=== PATIENT | female | born 1960 | race African-American/Black ===

== ENCOUNTER 2017-07-13 17:44 | Emergency (ER) | payer MEDICARE, MEDICAID ==
[2017-07-13 18:37] LABS: #Eosinphils 0.1 thou/uL (0.0-0.7); #Lymphocytes 1.2 thou/uL (1.20-3.40); #Monocytes 0.4 thou/uL (0.11-0.59); #Neutrophils 13.6 thou/uL (1.40-6.50); %Basophils 0.1 % (0.0-1.0); %Eosinophils 0.3 % (0.0-10.0); %Lymphocytes 7.6 % (21.0-51.0); %Monocytes 2.8 % (0.0-10.0); Hematocrit 43.2 % (36.0-47.0); Mean Platelet Volume 7.6 fL (7.4-10.4); Red Blood Cell (RBC) Count 4.94 mill/uL (4.20-5.40); White Blood Cell (WBC) Count 15.3 thou/uL (4.8-10.8)
[2017-07-13 18:45] LABS: Bilirubin Negative (Negative); Blood, Urine Negative (Negative); Glucose, Urine (Dipstick) Negative (Negative); Ketone, Urine 15 mg/dL (Negative); Nitrite Negative (Negative); Protein, Urine (Dipstick) Negative (Neg-Trace)
[2017-07-13 18:46] LABS: Bacteria/HPF 4+ HPF (None Seen); Hyaline Casts/LPF 4-6 HYALINE CAST LPF (0-3 Hyaline)
[2017-07-13 19:00] LABS: ALT (SGPT) 9 U/L (8-55); AST (SGOT) 9 U/L (5-34); Alkaline Phosphatase 92 U/L (40-150); Anion Gap 16 mmol/L (10-20); BUN (Urea Nitrogen) 11 mg/dL (9.8-20.1); Calc. Creatinine Clearance 0 mL/min (70-130); Calcium 9.9 mg/dL (7.8-10.44); Carbon Dioxide 24 mmol/L (22-29); Chloride 106 mmol/L (98-107); Estimated GFR-MDRD Greater than 90; Lipase 13 U/L (8-78)
[2017-07-13 19:45] LABS: Lactic Acid - Sepsis 0.9 mmol/L (0.5-2.2)
[2017-07-13] MEDS ORDERED: Ondansetron HCl/PF 4 MG/2 ML Vial ONE (20:17)
[2017-07-13] MEDS ORDERED: Ketorolac Tromethamine 30 MG/ML VIAL ONE (20:17)
--- NOTE | 2017-07-13 20:31 | CT ---
CT OF THE ABDOMEN AND PELVIS WITHOUT IV CONTRAST 07/13/17 INDICATION: Nausea and vomiting starting this morning. COMPARISON: Prior CT abdomen and pelvis without contrast dated 11/05/12. FINDINGS: There were trace bilateral pleural effusions. There are numerous scattered oval hypodensities within the liver which are largely stable suspicious for cysts. There is a small amount of fluid overlying the right hepatic lobe. There is a hyperdense lesion now present involving the lateral aspect of the right kidney where prev iously it was a hypodense lesion measuring 2.4 cm. The lesion now measures 2.2 cm and is diffusely h yperdense. This may reflect a hemorrhagic conversion or highly proteinaceous cyst. Small 1.2 cm cyst involving the left mid kidney is stable. A smaller suspected cyst is seen involving the inferior po le of the left kidney measuring 1.2 cm. no hydronephrosis is evident. There is prominent wall thickening involving the third stage of the duodenum, fourth stage of the du odenum and proximal jejunum. There is mild free fluid in the pelvis. There is a fibroid uterus present. There is a small calcific ation within the right adnexa. The spleen and visualized unopacified pancreas are unremarkable. There is scattered degenerative and osteoarthritic change. There is diffuse osteopenia and scattered degenerative and osteoarthritic change. There is a stable bony hemangioma within the right lateral aspect of L1. IMPRESSION: 1. Prominent wall thickening involving loops of duodenum and jejunum is suspicious for an enter itis. This may be infectious or inflammatory in etiology. 2. Small bilateral pleural effusions and mild free fluid in the abdomen and pelvis. 3. Hypodensities within the liver are stable since 2012 and likely reflective of cysts. 4. Interval development of a hyperdense lesion involving the right mid kidney in the same locat ion of a previously seen cyst. This may reflect proteinaceous or hemorrhagic conversion. As a conser vative measure, would recommend a followup renal ultrasound for further characterization. Small left renal cysts are likely stable to the prior exam. 5. Fibroid uterus. POS: [facility]
== END 2017-07-13 21:40 | disposition home or self-care (01) ==
LOC: ERS 17:44
DX: K52.9 Noninfective gastroenteritis and colitis, unspecified (principal); N39.0 Urinary tract infection, site not specified; E78.5 Hyperlipidemia, unspecified; D64.9 Anemia, unspecified; I10 Essential (primary) hypertension; E11.9 Type 2 diabetes mellitus without complications
CPT/HCPCS: 36416; 74176; 80053; 81003; 81015; 83605; 83690; 85025; 96361; 96374; 96375; J1885; J2405

== ENCOUNTER 2018-01-31 14:45 | Emergency (ER) | payer MEDICARE, MEDICAID ==
--- NOTE | 2018-01-31 16:26 | RAD ---
CHEST TWO VIEWS: HISTORY: Fever and cough. COMPARISON: 10/05/2016 FINDINGS: The cardiac silhouette and the pulmonary vasculature are unremarkable. The mediastinum is midline. There is no confluent air space consolidation, pneumothorax, or pleural fluid. IMPRESSION: No active cardiopulmonary abnormalities demonstrated. POS: [facility]
== END 2018-01-31 17:07 | disposition home or self-care (01) ==
LOC: ERS 14:45
DX: J20.9 Acute bronchitis, unspecified (principal); E78.5 Hyperlipidemia, unspecified; I10 Essential (primary) hypertension; E11.9 Type 2 diabetes mellitus without complications; D64.9 Anemia, unspecified
CPT/HCPCS: 71046

== ENCOUNTER 2018-08-21 13:07 | Emergency (ER) | payer MEDICARE, MEDICAID ==
[2018-08-21] MEDS ORDERED: Ondansetron PF 4 MG/2 ML Vial ONE (13:28)
[2018-08-21] MEDS ORDERED: Morphine 4 MG/ML VIAL ONE (13:28)
[2018-08-21 13:55] LABS: #Lymphocytes 1.3 thou/uL (1.20-3.40); #Monocytes 0.4 thou/uL (0.11-0.59); #Neutrophils 7.9 thou/uL (1.40-6.50); %Eosinophils 0.4 % (0.0-10.0); %Lymphocytes 13.5 % (21.0-51.0); %Monocytes 4.5 % (0.0-10.0); %Neutrophils 81.7 % (42.0-75.0); Hemoglobin 11.5 g/dL (12.0-16.0); Mean Corpuscular HGB CONC 30.8 g/dL (32.0-36.0); Mean Corpuscular Hemoglobin 26.8 pg (27.0-31.0); Mean Corpuscular Volume 86.9 fL (78.0-98.0); Mean Platelet Volume 7.9 fL (7.4-10.4); Platelet Count 219 thou/uL (130-400); Red Blood Cell (RBC) Count 4.29 mill/uL (4.20-5.40); White Blood Cell (WBC) Count 9.7 thou/uL (4.8-10.8)
[2018-08-21 14:20] LABS: ALT (SGPT) 10 U/L (8-55); AST (SGOT) 11 U/L (5-34); Albumin 3.7 g/dL (3.5-5.0); Alkaline Phosphatase 70 U/L (40-150); Anion Gap 8 mmol/L (10-20); BUN (Urea Nitrogen) 10 mg/dL (9.8-20.1); Calc. Creatinine Clearance 0 mL/min (70-130); Calcium 9.6 mg/dL (7.8-10.44); Carbon Dioxide 30 mmol/L (22-29); Chloride 106 mmol/L (98-107); Estimated GFR-MDRD Greater than 90; Globulin 3.5 g/dL (2.4-3.5); Glucose 252 mg/dL (70-105); Lipase 17 U/L (8-78); Potassium 3.7 mmol/L (3.5-5.1); Protein, Total 7.2 g/dL (6.0-8.3); Sodium 140 mmol/L (136-145)
[2018-08-21] MEDS ORDERED: Mag-Al 1200 mg/1200 mg/30 ML UDCUP ONE (14:50)
[2018-08-21] MEDS ORDERED: Lidocaine Viscous Sol 2% 15 ml UD Cup ONE (14:50)
--- NOTE | 2018-08-22 15:53 | EKG ---
Test Reason : Blood Pressure : / mmHG Vent. Rate : 083 BPM Atrial Rate : 083 BPM P-R Int : 172 ms QRS Dur : 092 ms QT Int : 392 ms P-R-T Axes : 038 -07 017 degrees QTc Int : 460 ms Normal sinus rhythm Normal ECG Confirmed by NANCY ADAM ([id number]), editor magazine GAYLE NORMAN ([id number]) on 08/22/2018 3:53:18 PM Referred By: Confirmed By:NANCY ADAM
== END 2018-08-21 15:34 | disposition home or self-care (01) ==
LOC: ERS 13:07
DX: R10.13 Epigastric pain (principal); R10.11 Right upper quadrant pain; E78.5 Hyperlipidemia, unspecified; I10 Essential (primary) hypertension; D64.9 Anemia, unspecified; E11.9 Type 2 diabetes mellitus without complications; Z79.84 Long term (current) use of oral hypoglycemic drugs; Z79.899 Other long term (current) drug therapy
CPT/HCPCS: 36415; 80053; 83690; 84484; 85025; 93005; 96361; 96374; 96375; J2270; J2405

== ENCOUNTER 2019-05-23 23:30 | Inpatient (IN) | payer MEDICARE, MEDICAID ==
--- NOTE | 2019-05-24 00:03 | RAD ---
RADIOGRAPH CHEST 1 VIEW: DATE: 05/24/2019 11:59 PM HISTORY: 58-year-old female with chest pain FINDINGS: There are no airspace densities, pulmonary edema, pneumothorax, or cardiomegaly. The lateral costophr enic angles are sharp. IMPRESSION: No acute cardiopulmonary findings.
[2019-05-24 00:16] LABS: #Eosinphils 0.1 thou/uL (0.0-0.7); #Lymphocytes 1.7 thou/uL (1.20-3.40); #Monocytes 1.2 thou/uL (0.11-0.59); #Neutrophils 13.1 thou/uL (1.40-6.50); %Basophils 0.1 % (0.0-1.0); %Eosinophils 0.4 % (0.0-10.0); %Lymphocytes 10.6 % (21.0-51.0); %Monocytes 7.6 % (0.0-10.0); %Neutrophils 81.3 % (42.0-75.0); Hemoglobin 11.6 g/dL (12.0-16.0); Mean Corpuscular HGB CONC 32.9 g/dL (32.0-36.0); Mean Corpuscular Hemoglobin 28.1 pg (27.0-31.0); Mean Corpuscular Volume 85.5 fL (78.0-98.0); Mean Platelet Volume 8.1 fL (7.4-10.4); Platelet Count 196 thou/uL (130-400); RBC Distribution Width 13.3 % (11.5-14.5); Red Blood Cell (RBC) Count 4.12 mill/uL (4.20-5.40); White Blood Cell (WBC) Count 16.1 thou/uL (4.8-10.8)
[2019-05-24 00:38] LABS: ALT (SGPT) 9 U/L (8-55); AST (SGOT) 8 U/L (5-34); Albumin 3.9 g/dL (3.5-5.0); Alkaline Phosphatase 87 U/L (40-150); Anion Gap 14 mmol/L (10-20); BUN (Urea Nitrogen) 9 mg/dL (9.8-20.1); Bilirubin, Total 1.1 mg/dL (0.2-1.2); Calc. Creatinine Clearance 0 mL/min (70-130); Calcium 9.3 mg/dL (7.8-10.44); Carbon Dioxide 22 mmol/L (22-29); Chloride 105 mmol/L (98-107); Estimated GFR-MDRD 90; Globulin 3.1 g/dL (2.4-3.5); Glucose 273 mg/dL (70-105); Lipase 16 U/L (8-78); Potassium 3.3 mmol/L (3.5-5.1); Sodium 138 mmol/L (136-145)
[2019-05-24 02:56] LABS: Bacteria/HPF 3+ HPF (None Seen); Bilirubin Negative (Negative); Blood, Urine 1+ (Negative); Clarity Turbid (Clear); Glucose, Urine (Dipstick) Greater than 1000 mg/dL (Negative); Leukocyte 500 Leu/uL (Negative); Nitrite 2+ (Negative); Protein, Urine (Dipstick) 30 mg/dL (Neg-Trace); WBC/HPF Greater than 50 HPF (0-3)
[2019-05-24] MEDS ORDERED: cefTRIAXone\\ROCEPHIN 1 GM VIAL ONE (03:31)
[2019-05-24] MEDS ORDERED: Acetaminophen 500 MG TAB ONE (03:31)
[2019-05-24 04:14] LABS: Troponin I Less than 0.010 ng/mL (< 0.028)
[2019-05-24] MEDS ORDERED: Dextrose 50% Abboject 50 ML SYRINGE SLOW IVP PRN (05:03)
[2019-05-24] MEDS ORDERED: Dextrose 5% in Water 1,000 ML IV PRN (05:03)
--- NOTE | 2019-05-24 05:16 | PDOC.EVN ---
Event Note - Event Note Event Note: H&P dictated [id number]
[2019-05-24] MEDS ORDERED: Aspirin 325 MG TAB ONE (05:18)
--- NOTE | 2019-05-24 05:48 | HP ---
CHIEF COMPLAINT: Chest pain. HISTORY OF PRESENT ILLNESS: Ms. Hanna is a 58-year-old female with past medical history of diabetes, hyperlipidemia, hypertension, presents to the emergency room with chief complaint of midsternal chest pain that started at around noon yesterday. Pain with not radiating. Patient denies any history of chest trauma. Denies nausea or vomiting or abdominal pain. Workup in the emergency room including initial cardiac enzymes and EKG, no acute findings. The patient was found to have acute urinary tract infection. Given patient's presentation and risk factors, the patient is being admitted to hospital for further management and rule out acute coronary syndrome. PAST MEDICAL HISTORY: 1. Hypertension. 2. Diabetes. 3. Hyperlipidemia. PAST SURGICAL HISTORY: 1. section. 2. Hip surgery after a fall. SOCIAL HISTORY: The patient denies smoking or alcohol drinking or drug abuse. FAMILY HISTORY: Includes diabetes. ALLERGIES: NO KNOWN ALLERGIES. HOME MEDICATIONS: Please see home medication reconciliation form for updated medications. REVIEW OF SYSTEMS: Review of 14-systems negative except what was mentioned in history of present illness. PHYSICAL EXAMINATION: GENERAL: The patient awake, alert, pleasant, does not appear to be in acute distress. VITAL SIGNS: Blood pressure 104/55, heart rate is 83, respiratory rate is 18, pulse oximetry is 98% on room air. HEAD AND NECK: Normocephalic and atraumatic. Neck is supple. No JVD. CHEST: Clear, bilateral air entry. HEART: S1 and S2 regular. ABDOMEN: Obese, soft. Bowel sounds present. NEUROLOGIC: Awake, alert, and oriented x3. PSYCHIATRIC: Normal mood. EXTREMITIES: No clubbing. No cyanosis. LABORATORY DATA: Urinalysis shows greater than 50 wbc's, 1+ blood, 3+ bacteria, nitrite 2+, leukocytes positive. Troponin is less than 0.01. Electrolytes; potassium is 3.3, glucose 273. WBC is elevated at 16.1, hemoglobin 11.6. Chest x-ray, no acute findings. ASSESSMENT AND PLAN: 1. Acute chest pain, rule out acute coronary syndrome. 2. Acute urinary tract infection. 3. Leukocytosis. 4. Hypertension. 5. Diabetes mellitus. 6. Hyperlipidemia. PLAN: 1. Admit. 2. Telemetry monitoring. 3. Aspirin. 4. Serial cardiac enzymes. 5. IV antibiotics. 6. Reconcile home medications. 7. Deep venous thrombosis prophylaxis, low molecular weight heparin. EXPECTED LENGTH OF STAY: At least 1 midnight if the patient is stable and further workup negative. Job ID: [id number]
[2019-05-24 06:05] VITALS: BMI 31.1
[2019-05-24 08:07] LABS: Troponin I Less than 0.010 ng/mL (< 0.028)
--- NOTE | 2019-05-24 09:58 | PRG ---
DATE OF SERVICE: 05/24/2019 SUBJECTIVE: The patient says she feels much better. Chest pain has essentially resolved. She reports that she does occasionally have some pain in the left posterior lateral thigh area going down her leg. She says it tends to feel like it may give out sometimes when she is walking. This is not new. She follows with Dr. Mahajan at [facility] and they have discussed this before. She also denies any dysuria or other urinary tract symptoms other than saying it just does not feel normal when she is voiding. Discussion with nurse, did the best we could to get her home medication regimen resolved, talked to her PCP's office and the patient. This appears to be the most accurate we can get. She does not recall having a stress test in 2017 here nor does she believe she has had any cardiac workup since that time. OBJECTIVE: VITAL SIGNS: Temperature is 97.7, pulse 74, respirations are 16, O2 saturation 97% on room air, and BP 122/60. GENERAL APPEARANCE: Age-appropriate female. HEART: Regular rate and rhythm with no murmurs. LUNGS: Clear bilaterally. No wheezes or rales. ABDOMEN: Soft and nontender. EXTREMITIES: No cyanosis or clubbing. No edema. She has palpable posterior tibial pulses bilaterally. IMPRESSION AND PLAN: 1. Chest pain. The patient with multiple risk factors. We will obtain a nuclear medicine stress test today. 2. Urinary tract infection. She is on Rocephin. If she does okay with her stress test, we will likely be able to discharge her on p.o. antibiotics. 3. Diabetes mellitus. Continue with her home medications including Actos and metformin and glipizide. 4. Hypertension. Continue lisinopril. 5. Hyperlipidemia. Continue Lipitor. Job ID: [id number] [facility]
[2019-05-24] MEDS: Aspirin 325 mg Enteric Coated Tablet PO SCH (12:39)
[2019-05-24] MEDS: DULoxetine 30 MG CAP PO SCH (12:39)
[2019-05-24] MEDS: Enoxaparin Sodium 40 MG/0.4 ML SYRINGE SC SCH (12:39)
[2019-05-24] MEDS: HumaLOG 300 UNITS/3 ML VIAL SC PRN ×2 (13:46→17:10)
[2019-05-24 14:27] LABS: #Eosinphils 0.1 thou/uL (0.0-0.7); #Monocytes 1.1 thou/uL (0.11-0.59); #Neutrophils 11.3 thou/uL (1.40-6.50); %Basophils 0.1 % (0.0-1.0); %Eosinophils 0.4 % (0.0-10.0); %Lymphocytes 13.9 % (21.0-51.0); %Monocytes 7.6 % (0.0-10.0); %Neutrophils 77.9 % (42.0-75.0); Hemoglobin 11.8 g/dL (12.0-16.0); Mean Corpuscular HGB CONC 32.2 g/dL (32.0-36.0); Mean Corpuscular Hemoglobin 27.9 pg (27.0-31.0); Mean Corpuscular Volume 86.7 fL (78.0-98.0); Mean Platelet Volume 8.5 fL (7.4-10.4); Platelet Count 201 thou/uL (130-400); RBC Distribution Width 13.1 % (11.5-14.5); Red Blood Cell (RBC) Count 4.21 mill/uL (4.20-5.40); White Blood Cell (WBC) Count 14.5 thou/uL (4.8-10.8)
[2019-05-24] MEDS ORDERED: ADENOSINE 60 MG/20 ML VIAL ONE (16:55)
[2019-05-24] MEDS: metFORMIN 500 MG TAB PO SCH (17:10)
[2019-05-24] MEDS: glipiZIDE 10 MG TAB PO SCH (17:10)
[2019-05-24] MEDS: Atorvastatin Calcium 40 MG TAB PO SCH (20:29)
[2019-05-24] MEDS: Lisinopril 2.5 MG TAB PO SCH (20:29)
[2019-05-25] MEDS ORDERED: cefTRIAXone\\ROCEPHIN 1 GM in Sodium Chloride 0.9% 100 ML IVPB SCH ×2 (03:00→10:00)
[2019-05-25] MEDS: DULoxetine 30 MG CAP PO SCH (10:02)
[2019-05-25] MEDS: Pioglitazone HCl 15 MG TAB PO SCH (10:02)
[2019-05-25] MEDS: glipiZIDE 10 MG TAB PO SCH ×2 (10:02→17:12)
[2019-05-25] MEDS: Aspirin 325 mg Enteric Coated Tablet PO SCH (10:02)
[2019-05-25] MEDS: metFORMIN 500 MG TAB PO SCH ×2 (10:02→17:12)
[2019-05-25] MEDS: Enoxaparin Sodium 40 MG/0.4 ML SYRINGE SC SCH (10:02)
--- NOTE | 2019-05-25 10:26 | NM ---
EXAM: Nuclear medicine cardiac SPECT with EF and wall motion: HISTORY: Chest pain Protocol: Exam was performed using adenosine protocol. The patient is injected with32.5 millicuries of technetium 99m sestamibi intravenously for stress bj ges. The patient is injected with33.0 millicuries of technetium 99 sestamibi intravenously for resting bj ges. Multiple SPECT images are performed in the short axis, vertical long axis, and horizontal long axis. FINDINGS: No scan evidence for infarct or ischemia. TID:1.26 LHR:0.35 EDV:86 mL EF:56% Wall motion:Within normal limits IMPRESSION: Unremarkable cardiac SPECT with EF and wall motion little change from prior study.
--- NOTE | 2019-05-25 11:27 | PDOC.HOSPP ---
- Subjective Encounter Date: 05/25/19 Encounter Time: 11:20 Subjective: f/u for CP with negative CYLINDER DYER but + E. coli bactermia. Received Rocephin x 1 dose this am. Feels ok overall but has CADENA. - Objective Vital Signs & Weight: Vital Signs (12 hours) Temp Pulse Resp BP Pulse Ox 05/25/19 07:42 99.4 F 99 16 118/59 L 99 05/25/19 05:06 96 05/25/19 03:35 99.6 F 97 24 H 118/60 96 Weight Admit Weight 192 lb 9.6 oz Weight 191 lb 12.8 oz I&O: 05/24/19 05/25/19 05/26/19 06:59 06:59 06:59 Intake Total 2050 580 Output Total 1000 Balance 1050 580 Result Diagrams: 05/24/19 13:27 05/24/19 00:07 Additional Labs: Accuchecks 05/25/19 05/24/19 05/24/19 05:29 20:36 16:47 POC Glucose 160 H 143 H 194 H 05/24/19 12:53 POC Glucose 237 H Microbiology 05/24/19 00:17 Venous blood - Right Hand Blood Culture - Preliminary Presumptive Escherichia coli 05/24/19 00:08 Venous blood - Left Hand Blood Culture - Preliminary Specimen has been received and culture in progress. No Growth to date. Laboratory Tests 05/24/19 05/24/19 05/24/19 00:07 00:07 13:27 WBC 16.1 H Hgb 11.6 L Neutrophils % 81.3 H 77.9 H Potassium 3.3 L Radiology Reviewed by me: Yes (CYLINDER DYER - negative) EKG Reviewed by me: Yes (Tele - SR) Hospitalist ROS - Medication Medications: Active Medications Generic Name Dose Route Start Last Admin Trade Name Freq PRN Reason Stop Dose Admin Aspirin 325 mg 05/24/19 09:00 05/25/19 10:02 Ecotrin PO 325 mg DAILY HAFSA Administration Atorvastatin Calcium 80 mg 05/24/19 21:00 05/24/19 20:29 Lipitor PO 80 mg HS HAFSA Administration Duloxetine HCl 30 mg 05/24/19 09:00 05/25/19 10:02 Cymbalta PO 30 mg DAILY HAFSA Administration Enoxaparin Sodium 40 mg 05/24/19 09:00 05/25/19 10:02 Lovenox SC 40 mg 0900 HAFSA Administration Glipizide 10 mg 05/24/19 17:00 05/25/19 10:02 Glucotrol PO 10 mg BID-WM HAFSA Administration Ceftriaxone Sodium 1 gm/ 100 mls @ 200 mls/hr 05/25/19 10:00 05/25/19 10:03 Sodium Chloride IVPB 05/25/19 13:00 100 mls NOW HAFSA Administration Insulin Human Lispro 0 units 05/24/19 05:03 05/24/19 17:10 Humalog SC 2 unit .MILD SLIDING SCALE PRN Administration Mild Correctional Scale Lisinopril 2.5 mg 05/24/19 21:00 05/24/19 20:29 Zestril PO 2.5 mg HS HAFSA Administration Metformin HCl 1,000 mg 05/24/19 17:00 05/25/19 10:02 Glucophage PO 1,000 mg BID-WM HAFSA Administration Pioglitazone HCl 30 mg 05/25/19 09:00 05/25/19 10:02 Actos PO 30 mg DAILY HAFSA Administration - Exam General Appearance: NAD, awake alert Eye: PERRL, anicteric sclera ENT: normocephalic atraumatic, no oropharyngeal lesions Neck: supple, symmetric, no JVD, no thyromegaly, no lymphadenopathy Heart: RRR, no murmur, no gallops, no rubs, normal peripheral pulses Respiratory: CTAB, no wheezes, no rales, no ronchi Gastrointestinal: soft, non-tender, non-distended, normal bowel sounds, no palpable masses Extremities: no cyanosis, no clubbing, no edema Skin: normal turgor, no lesions Neurological: cranial nerve grossly intact, no focal deficits, no new deficit Musculoskeletal: normal tone, normal strength, no muscle wasting Psychiatric: A&O x 3 Hosp A/P (1) E coli bacteremia Code(s): R78.81 - BACTEREMIA Status: Acute Plan: Continue Rocephin 2gm IV daily, await final Ucx with sensitivities (2) E. coli UTI Code(s): N39.0 - URINARY TRACT INFECTION, SITE NOT SPECIFIED; B96.20 - UNSP ESCHERICHIA COLI THE CAUSE OF DISEASES CLASSD ELSWHR Status: Acute Plan: Rocephin 2gm IV daily (3) Atypical chest pain Code(s): R07.89 - OTHER CHEST PAIN Status: Acute Plan: Likely due to #1, CYLINDER DYER negative (4) Diabetes mellitus type 2 in obese Code(s): E11.9 - TYPE 2 DIABETES MELLITUS WITHOUT COMPLICATIONS; E66.9 - OBESITY , UNSPECIFIED Status: Chronic Plan: Continue Actos, Glipizide and Metformin (5) HTN (hypertension) Code(s): I10 - ESSENTIAL (PRIMARY) HYPERTENSION Status: Chronic Qualifiers: Hypertension type: essential hypertension Qualified Code(s): I10 - Essential (primary) hypertension Plan: Stable currently, serial BP monitoring - Plan plan discussed w/ family, continue antibiotics, out of bed/ambulate, DVT proph w /SCDs Stable currently Continue Rocephin 2gm IV daily Await final Ucx results with sensitivities Toradol 30mg IV q6h prn AM lab: BMP, CBC Transfer to medical floor
[2019-05-25] MEDS ORDERED: Ketorolac Tromethamine 30 MG/ML VIAL IVP SCH (11:30)
[2019-05-25] MEDS: HumaLOG 300 UNITS/3 ML VIAL SC PRN (12:55)
[2019-05-25] MEDS ORDERED: Ketorolac Tromethamine 30 MG/ML VIAL IVP PRN (13:30)
--- NOTE | 2019-05-25 14:57 | EKG ---
Test Reason : Blood Pressure : / mmHG Vent. Rate : 116 BPM Atrial Rate : 116 BPM P-R Int : 162 ms QRS Dur : 088 ms QT Int : 268 ms P-R-T Axes : 038 -18 060 degrees QTc Int : 372 ms Sinus tachycardia Possible Left atrial enlargement Left ventricular hypertrophy Nonspecific T wave abnormality Abnormal ECG No ST elevation Confirmed by FELIX SHI M.D. ([id number]), medical transcription editor FLORI VILLATORO ([id number]) on 05/25/2019 2:57:02 PM Referred By: Confirmed By:FELIX SHI M.D.
[2019-05-25] MEDS: Lisinopril 2.5 MG TAB PO SCH (20:40)
[2019-05-25] MEDS: Atorvastatin Calcium 40 MG TAB PO SCH (20:40)
[2019-05-26 06:15] LABS: Band 4 % (5-11); Eosinophils 2 % (0-10); Hemoglobin 10.9 g/dL (12.0-16.0); Lymphocytes 20 % (21-51); MDiff Complete? YES; Mean Corpuscular HGB CONC 32.1 g/dL (32.0-36.0); Mean Corpuscular Hemoglobin 27.2 pg (27.0-31.0); Mean Corpuscular Volume 84.7 fL (78.0-98.0); Monocytes 8 % (0-10); Neutrophil 66 % (42-75); Platelet Count 198 thou/uL (130-400); Platelet Morphology Comment Appears Adequate; RBC Distribution Width 12.8 % (11.5-14.5); Red Blood Cell (RBC) Count 4.01 mill/uL (4.20-5.40); White Blood Cell (WBC) Count 8.8 thou/uL (4.8-10.8)
[2019-05-26 06:30] LABS: Anion Gap 10 mmol/L (10-20); BUN (Urea Nitrogen) 11 mg/dL (9.8-20.1); Calc. Creatinine Clearance 128 mL/min (70-130); Calcium 9.2 mg/dL (7.8-10.44); Carbon Dioxide 24 mmol/L (22-29); Chloride 105 mmol/L (98-107); Estimated GFR-MDRD Greater than 90; Glucose 125 mg/dL (70-105); Potassium 3.4 mmol/L (3.5-5.1); Sodium 136 mmol/L (136-145)
[2019-05-26] MEDS: DULoxetine 30 MG CAP PO SCH (08:36)
[2019-05-26] MEDS: Aspirin 325 mg Enteric Coated Tablet PO SCH (08:36)
[2019-05-26] MEDS: glipiZIDE 10 MG TAB PO SCH ×2 (08:36→17:01)
[2019-05-26] MEDS: Enoxaparin Sodium 40 MG/0.4 ML SYRINGE SC SCH (08:37)
[2019-05-26] MEDS: metFORMIN 500 MG TAB PO SCH ×2 (08:37→17:01)
[2019-05-26] MEDS: cefTRIAXone\\ROCEPHIN 2 GM in Sodium Chloride 0.9% 100 ML IVPB SCH (10:09)
[2019-05-26] MEDS: Pioglitazone HCl 15 MG TAB PO SCH (10:09)
[2019-05-26] MEDS: HumaLOG 300 UNITS/3 ML VIAL SC PRN ×2 (12:25→17:02)
--- NOTE | 2019-05-26 16:06 | PDOC.HOSPP ---
- Subjective Encounter Date: 05/26/19 Encounter Time: 16:00 Subjective: f/u for E. [facility] Feels better overall. - Objective Vital Signs & Weight: Vital Signs (12 hours) Temp Pulse Resp BP Pulse Ox 05/26/19 11:00 98.2 F 85 16 122/79 97 05/26/19 08:00 97 05/26/19 07:55 98.0 F 100 18 125/82 97 05/26/19 05:00 98.3 F 89 18 118/74 97 Weight Admit Weight 192 lb 9.6 oz Weight 191 lb 12.8 oz I&O: 05/25/19 05/26/19 05/27/19 06:59 06:59 06:59 Intake Total 2050 1120 Output Total 1000 Balance 1050 1120 Result Diagrams: 05/26/19 05:39 05/26/19 05:39 Additional Labs: Accuchecks 05/26/19 05/26/19 05/25/19 11:25 04:38 19:25 POC Glucose 154 H 128 H 219 H 05/25/19 16:08 POC Glucose 171 H Microbiology 05/24/19 02:43 Urine clean catch Urine Culture - Final Escherichia coli 05/24/19 00:17 Venous blood - Right Hand Blood Culture - Preliminary Presumptive Escherichia coli 05/24/19 00:17 Venous blood - Right Hand Blood Culture - Preliminary Presumptive Escherichia coli 05/24/19 00:08 Venous blood - Left Hand Blood Culture - Preliminary Specimen has been received and culture in progress. No Growth to date. Laboratory Tests 05/24/19 05/24/19 05/24/19 00:07 00:07 13:27 WBC 16.1 H Hgb 11.6 L Neutrophils % 81.3 H 77.9 H Potassium 3.3 L Radiology Reviewed by me: Yes Hospitalist ROS - Medication Medications: Active Medications Generic Name Dose Route Start Last Admin Trade Name Freq PRN Reason Stop Dose Admin Aspirin 325 mg 05/24/19 09:00 05/26/19 08:36 Ecotrin PO 325 mg DAILY HAFSA Administration Atorvastatin Calcium 80 mg 05/24/19 21:00 05/25/19 20:40 Lipitor PO 80 mg HS HAFSA Administration Duloxetine HCl 30 mg 05/24/19 09:00 05/26/19 08:36 Cymbalta PO 30 mg DAILY HAFSA Administration Enoxaparin Sodium 40 mg 05/24/19 09:00 05/26/19 08:37 Lovenox SC 40 mg 0900 HAFSA Administration Glipizide 10 mg 05/24/19 17:00 05/26/19 08:36 Glucotrol PO 10 mg BID-WM HAFSA Administration Ceftriaxone Sodium 2 gm/ 100 mls @ 200 mls/hr 05/26/19 09:00 05/26/19 10:09 Sodium Chloride IVPB 100 mls Q24HR HAFSA Administration Insulin Human Lispro 0 units 05/24/19 05:03 05/26/19 12:25 Humalog SC 2 unit .MILD SLIDING SCALE PRN Administration Mild Correctional Scale Lisinopril 2.5 mg 05/24/19 21:00 05/25/19 20:40 Zestril PO 2.5 mg HS HAFSA Administration Metformin HCl 1,000 mg 05/24/19 17:00 05/26/19 08:37 Glucophage PO 1,000 mg BID-WM HAFSA Administration Pioglitazone HCl 30 mg 05/25/19 09:00 05/26/19 10:09 Actos PO 30 mg DAILY HAFSA Administration - Exam General Appearance: NAD, awake alert Eye: PERRL, anicteric sclera ENT: normocephalic atraumatic, no oropharyngeal lesions Neck: supple, symmetric, no JVD, no thyromegaly, no lymphadenopathy Heart: RRR, no murmur, no gallops, no rubs, normal peripheral pulses Respiratory: CTAB, no wheezes, no rales, no ronchi Gastrointestinal: soft, non-tender, non-distended, normal bowel sounds, no palpable masses Extremities: no cyanosis, no clubbing, no edema Skin: normal turgor Neurological: cranial nerve grossly intact, no focal deficits, no new deficit Musculoskeletal: normal tone, normal strength Psychiatric: normal affect, A&O x 3 Hosp A/P (1) E coli bacteremia Code(s): R78.81 - BACTEREMIA Status: Acute Plan: Ucx + for E. coli and pansensitive, convert to Levaquin in am (2) E. coli UTI Code(s): N39.0 - URINARY TRACT INFECTION, SITE NOT SPECIFIED; B96.20 - UNSP ESCHERICHIA COLI THE CAUSE OF DISEASES CLASSD ELSWHR Status: Acute Plan: See above in #1 (3) Atypical chest pain Code(s): R07.89 - OTHER CHEST PAIN Status: Acute Plan: TAILMAN negative (4) Diabetes mellitus type 2 in obese Code(s): E11.9 - TYPE 2 DIABETES MELLITUS WITHOUT COMPLICATIONS; E66.9 - OBESITY , UNSPECIFIED Status: Chronic (5) HTN (hypertension) Code(s): I10 - ESSENTIAL (PRIMARY) HYPERTENSION Status: Chronic Qualifiers: Hypertension type: essential hypertension Qualified Code(s): I10 - Essential (primary) hypertension Plan: Stable, resume home BP regimen - Plan plan discussed w/ family, continue antibiotics, out of bed/ambulate, DVT proph w /SCDs Stable currently Continue Rocephin 2gm IV daily Transition to Levaquin in am Toradol 30mg IV q6h prn Likely home in 24h
[2019-05-26] MEDS: Atorvastatin Calcium 40 MG TAB PO SCH (20:25)
[2019-05-26] MEDS: Lisinopril 2.5 MG TAB PO SCH (20:25)
[2019-05-27 07:31] VITALS: BP 119/79; TEMP 97.8
[2019-05-27] MEDS: cefTRIAXone\\ROCEPHIN 2 GM in Sodium Chloride 0.9% 100 ML IVPB SCH (07:42)
[2019-05-27] MEDS: glipiZIDE 10 MG TAB PO SCH (07:46)
[2019-05-27] MEDS: DULoxetine 30 MG CAP PO SCH (07:46)
[2019-05-27] MEDS: Enoxaparin Sodium 40 MG/0.4 ML SYRINGE SC SCH (07:47)
[2019-05-27] MEDS: Aspirin 325 mg Enteric Coated Tablet PO SCH (07:47)
[2019-05-27] MEDS: metFORMIN 500 MG TAB PO SCH (07:47)
[2019-05-27] MEDS: Pioglitazone HCl 15 MG TAB PO SCH (09:34)
--- NOTE | 2019-05-28 00:40 | DIS ---
DATE OF ADMISSION: 05/24/2019 DATE OF DISCHARGE: 05/27/2019 DISCHARGE DIAGNOSES: 1. E coli bacteremia secondary to urinary tract infection. 2. E coli urinary tract infection. 3. Atypical chest pain, noncardiac. 4. Diabetes mellitus type 2, stable. 5. Hypertension, stable. CONSULTATIONS: None. PERTINENT LABORATORY AND X-RAY FINDINGS: Potassium ranged between 3.3 to 3.4. Troponin I negative x3. CBC showed a white blood cell count ranged between 8.8 to 16.1, hemoglobin ranged between 10.9 to 11.8. Blood cultures dated 05/24/2019, showed 1/2 positive for E coli species. Urine culture dated 05/24/2019, showed greater than 100,000 colonies of E coli pansensitive. Portable chest x-ray dated 05/23/2019, showed no acute cardiopulmonary process. Cardiolite stress test dated 05/24/2019, showed no evidence of reversible or fixed ischemia with calculated ejection fraction of 56%. HOSPITAL COURSE: The patient was initially admitted after presenting with chest pain. The patient underwent serial cardiac biomarkers, which were negative x3 proceeding to Cardiolite stress testing showing no evidence of reversible or fixed ischemia with overall calculated ejection fraction of 56%. The patient was noted with a urine culture positive for E coli species as well as 1/2 blood cultures positive for E coli. The patient was treated with Rocephin and vancomycin initially, transitioning to Rocephin to complete the hospital IV antibiotic course. The patient clinically stabilized with antibiotic therapy and general supportive care. The patient has remained afebrile throughout the hospital course with normalization of the white blood cell count by second hospital day. Current recommendations are to transition to Levaquin 500 mg daily to complete a 7-day course of antibiotics after discharge. I have examined the patient at the time of discharge and discussed followup instructions. The patient verbalized understanding and in agreement, ready for discharge on 05/27/2019. DISCHARGE MEDICATIONS: 1. Lipitor 80 mg p.o. at bedtime. 2. Cymbalta 30 mg p.o. daily. 3. Glipizide 10 mg p.o. b.i.d. 4. Lisinopril 2.5 mg p.o. at bedtime. 5. Metformin 1000 mg p.o. daily. 6. Actos 30 mg p.o. daily. 7. Levaquin 500 mg p.o. daily x7 days. FOLLOWUP: The patient may follow up with her primary care provider at [facility] within 7 days of discharge. CONDITION ON DISCHARGE: Stable. ACTIVITY: Ad-campbell. DIET: ADA and heart healthy. SPECIAL INSTRUCTIONS: Repeat urine culture after completion of 7-day course of Levaquin. CODE STATUS: Full. DISPOSITION: Home on 05/27/2019. TIME SPENT: Total time preparing and coordinating discharge, 33 minutes. Job ID: [id number]
--- NOTE | 2019-05-29 04:49 | PQF ---
SRIKANTH WYMAN CHARLES [id number] CLINICAL DOCUMENTATION CLARIFICATION FORM: POST DISCHARGE Addendum to original discharge summary date: ____ Late entry note date: __ DATE: 05-29-2019 ATTN: Vladimir Manzo Please exercise your independent, professional judgment in responding to the clarification form. Clinical indicators are provided on the bottom of this form for your review Based on the below indicators please clarify what the patient actually has Please check appropriate box(es): [ ] Sepsis due to: UTI [ x ] Localized infection without sepsis [ ] Other diagnosis please specify: [ ] Unable to determine In addition, please specify: Present on Admission (POA): [ x ] Yes [ ] No [ ] Unable to determine For continuity of documentation, please document condition throughout progress notes and discharge summary. Thank You. CLINICAL INDICATORS: -HP 05/24 "WBC is evelated at 16.1" -PN 05/24 "positive E.coli bacteremia" -PN 05/24 "E.coli UTI" -Vital Signs 05/24 Pulse:122 -Vital Signs 05/25 Respi:24 RISK FACTORS: -HP 05/24 UTI -HP 05/24 - DM -PN 05/24 - Obesity TREATMENTS: -HP 05/24 - Urinalysis -PN 05/24 - Blood culture -PN 05/24 - Rocephin 2gm IV -NOV 17 - IVF (This form is maintained as a part of the permanent medical record) 2014 [email or web address]. All Rights Reserved Jojo [email or web address] [not provided] [email or web address]
== END 2019-05-27 12:23 | disposition home or self-care (01) | DRG 690 ==
LOC: ERS 23:30 → 2SW 05-24 05:47 → OBSVTOIN 05-24 05:47 → T4-B 05-25 13:23
PROVIDERS: ADMIT Internal Medicine; ATTEND Internal Medicine
DX: N39.0 Urinary tract infection, site not specified (principal); R78.81 Bacteremia; E11.9 Type 2 diabetes mellitus without complications; E78.5 Hyperlipidemia, unspecified; I10 Essential (primary) hypertension; B96.20 Unspecified Escherichia coli [E. coli] as the cause of diseases classified elsewhere; E66.9 Obesity, unspecified; R07.89 Other chest pain; E78.00 Pure hypercholesterolemia, unspecified; D64.9 Anemia, unspecified; Z68.31 Body mass index [BMI] 31.0-31.9, adult; Z79.899 Other long term (current) drug therapy; Z79.84 Long term (current) use of oral hypoglycemic drugs; Z91.81 History of falling
CPT/HCPCS: 36415; 36416; 71045; 78452; 80048; 80053; 81003; 81015; 83690; 84484; 85007; 85025; 85027; 85379; 87040; 87077; 87086; 87149; 87186; 93005; 93017; 94760; 96361; 96365; A9500; J0153; J0696; J1650; J1885; J3490

== ENCOUNTER 2021-01-15 23:43 | Emergency (ER) | payer MEDICARE, OTHER ==
[2021-01-16] MEDS ORDERED: Ondansetron PF 4 MG/2 ML Vial ONE (00:04)
[2021-01-16] MEDS ORDERED: Morphine 4 MG/ML VIAL ONE (00:04)
[2021-01-16 00:32] LABS: #Lymphocytes 1.4 thou/uL (1.20-3.40); #Monocytes 0.5 thou/uL (0.11-0.59); #Neutrophils 5.1 thou/uL (1.40-6.50); %Basophils 0.1 % (0.0-1.0); %Eosinophils 0.1 % (0.0-10.0); %Lymphocytes 19.3 % (21.0-51.0); %Monocytes 7.6 % (0.0-10.0); %Neutrophils 72.9 % (42.0-75.0); Hemoglobin 11.3 g/dL (12.0-16.0); Mean Corpuscular HGB CONC 32.6 g/dL (32.0-36.0); Mean Corpuscular Hemoglobin 28.1 pg (27.0-31.0); Mean Corpuscular Volume 86.2 fL (78.0-98.0); Mean Platelet Volume 8.3 fL (7.4-10.4); Platelet Count 181 thou/uL (130-400); RBC Distribution Width 13.4 % (11.5-14.5); Red Blood Cell (RBC) Count 4.01 mill/uL (4.20-5.40)
[2021-01-16 00:42] LABS: ALT (SGPT) 16 U/L (8-55); AST (SGOT) 28 U/L (5-34); Albumin 3.6 g/dL (3.4-4.8); Alkaline Phosphatase 64 U/L (40-110); Anion Gap 15 mmol/L (10-20); BUN (Urea Nitrogen) 11 mg/dL (9.8-20.1); Bilirubin, Total 0.5 mg/dL (0.2-1.2); Calc. Creatinine Clearance 0 mL/min (70-130); Carbon Dioxide 20 mmol/L (23-31); Chloride 98 mmol/L (98-107); Glucose 322 mg/dL (80-115); Lipase 44 U/L (8-78); Potassium 3.8 mmol/L (3.5-5.1); Protein, Total 7.6 g/dL (5.8-8.1); Sodium 129 mmol/L (136-145)
[2021-01-16 00:45] LABS: Bacteria/HPF 4+ HPF (None Seen); Bilirubin Negative (Negative); Blood, Urine 1+ (Negative); Clarity Extra Turbid (Clear); Glucose, Urine (Dipstick) Greater than 1000 mg/dL (Negative); Ketone, Urine Negative (Negative); Leukocyte 500 Leu/uL (Negative); Nitrite 2+ (Negative); Protein, Urine (Dipstick) 70 mg/dL (Neg-Trace); Squamous Epithelial 0-3 HPF (0-3); Transitional Epithelial 0-3 HPF (None Seen); Urobilinogen Normal mg/dL (Less than 2); WBC/HPF Greater than 50 HPF (0-3); pH, Urine 5.5 (5.0-9.0)
[2021-01-16] MEDS ORDERED: cefTRIAXone\\ROCEPHIN 2 GM VIAL ONE (01:16)
== END 2021-01-16 02:00 | disposition home or self-care (01) ==
LOC: ERS 23:43
DX: N39.0 Urinary tract infection, site not specified (principal); R19.7 Diarrhea, unspecified; E78.5 Hyperlipidemia, unspecified; E78.00 Pure hypercholesterolemia, unspecified; I10 Essential (primary) hypertension; E11.9 Type 2 diabetes mellitus without complications; D64.9 Anemia, unspecified; Z79.84 Long term (current) use of oral hypoglycemic drugs; Z79.899 Other long term (current) drug therapy
CPT/HCPCS: 80053; 81003; 81015; 83690; 85025; 87077; 87086; 87186; 93005; 96365; 96375; J0696; J2270; J2405

== ENCOUNTER 2025-05-02 11:25 | Inpatient (IN) | payer OTHER ==
[2025-05-02] MEDS ORDERED: Ketorolac Tromethamine 30 MG (1 mL) VIAL ONE (11:53)
[2025-05-02 13:07] LABS: #Basophils 0.04 10x3/uL (0.0-0.2); #Eosinophils 0.03 10x3/uL (0.0-0.7); #Monocytes 1.09 10x3/uL (0.11-0.59); #Neutrophils 13.92 10x3/uL (1.40-6.50); %Basophils 0.2 % (0.0-1.0); %Eosinophils 0.2 % (0.0-10.0); %Lymphocytes 15.5 % (21.0-51.0); %Monocytes 6.0 % (0.0-10.0); %Neutrophils 77.3 % (42.0-75.0); Hematocrit 33.5 % (36.0-47.0); Hemoglobin 10.3 g/dL (12.0-16.0); Mean Corpuscular Hemoglobin 27.2 pg (27.0-31.0); Mean Corpuscular Volume 88.6 fL (78.0-98.0); Platelet Count 313 10x3/uL (130-400); Red Blood Cell (RBC) Count 3.78 mill/uL (4.20-5.40); White Blood Cell (WBC) Count 18.03 10x3/uL (4.8-10.8)
[2025-05-02 13:42] LABS: ALT (SGPT) 11 U/L (Less than 34); AST (SGOT) 23 U/L (11-34); Albumin 2.9 g/dL (3.1-4.5); Alkaline Phosphatase 56 U/L (40-110); Anion Gap 13 mmol/L (10-20); BUN (Urea Nitrogen) 12 mg/dL (9.8-20.1); Bilirubin, Total 0.5 mg/dL (0.3-1.2); Calc. Creatinine Clearance 0 mL/min (70-130); Calcium 9.2 mg/dL (7.8-10.44); Carbon Dioxide 22 mmol/L (23-31); Chloride 110 mmol/L (98-107); Globulin 3.4 g/dL (2.4-3.5); Glucose 49 mg/dL (80-115); Potassium 4.8 mmol/L (3.5-5.1); Sodium 140 mmol/L (136-145)
[2025-05-02] MEDS ORDERED: Dextrose 50% Abboject 50 ML SYRINGE SLOW IVP PRN (13:46)
[2025-05-02] MEDS ORDERED: Acetaminophen 325 MG TAB PO PRN (13:46)
[2025-05-02] MEDS ORDERED: Glucagon 1 MG/ML KIT IM PRN (13:46)
[2025-05-02] MEDS ORDERED: hydrALAZINE 20 MG/ML VIAL SLOW IVP PRN (13:46)
[2025-05-02] MEDS ORDERED: Ondansetron PF 4 MG/2 ML Vial IVP PRN (13:46)
[2025-05-02 13:55] LABS: Cocaine Metabolite Screen Negative (Negative); THC/Cannabinoid Screen Negative (Negative); Tricyclic Screen Negative (Negative)
[2025-05-02 13:58] LABS: Bacteria/HPF 4+ HPF (None Seen); CAUTI Indications for Culture Dysuria,urgency,freq; Glucose, Urine (Dipstick) Normal (Negative); Leukocyte 500 Leu/uL (Negative); Protein, Urine (Dipstick) 50 mg/dL (Neg-Trace); RBC/HPF 21-50 HPF (0-3); Specific Gravity, Urine 1.016 (1.002-1.036); Urine Culture Reflex Yes Yes; WBC/HPF Greater than 50 HPF (0-3)
[2025-05-02] MEDS ORDERED: cefTRIAXone (ROCEPHIN) 1 GM VIAL ONE (14:04)
[2025-05-02 16:06] VITALS: BMI 25.0
[2025-05-02] MEDS: HYDROcodone/Acetaminophen 5/325 mg Tablet PO PRN (16:16)
[2025-05-02] MEDS: Methocarbamol 500 MG TAB PO PRN (16:16)
[2025-05-03 05:06] LABS: #Basophils Less than 0.03 10x3/uL (0.0-0.2); #Eosinophils 0.08 10x3/uL (0.0-0.7); #Monocytes 0.63 10x3/uL (0.11-0.59); #Neutrophils 5.40 10x3/uL (1.40-6.50); %Basophils 0.3 % (0.0-1.0); %Eosinophils 1.0 % (0.0-10.0); %Lymphocytes 19.9 % (21.0-51.0); %Monocytes 8.2 % (0.0-10.0); %Neutrophils 69.8 % (42.0-75.0); Hematocrit 30.1 % (36.0-47.0); Hemoglobin 9.3 g/dL (12.0-16.0); Mean Corpuscular Hemoglobin 27.6 pg (27.0-31.0); Mean Corpuscular Volume 89.3 fL (78.0-98.0); Platelet Count 266 10x3/uL (130-400); Red Blood Cell (RBC) Count 3.37 mill/uL (4.20-5.40); White Blood Cell (WBC) Count 7.73 10x3/uL (4.8-10.8)
[2025-05-03 05:27] LABS: Anion Gap 9 mmol/L (10-20); BUN (Urea Nitrogen) 13 mg/dL (9.8-20.1); Calc. Creatinine Clearance 70 mL/min (70-130); Calcium 8.8 mg/dL (7.8-10.44); Carbon Dioxide 23 mmol/L (23-31); Chloride 109 mmol/L (98-107); Glucose 265 mg/dL (80-115); Potassium 4.6 mmol/L (3.5-5.1); Sodium 136 mmol/L (136-145)
[2025-05-03] MEDS ORDERED: CEFAZOLIN 2 GM VIAL ONE (07:45)
[2025-05-03] MEDS ORDERED: Famotidine/PF 20 mg/2ml Vial ONE (08:03)
[2025-05-03] MEDS ORDERED: PROPOFOL 20 ML ONE (08:05)
[2025-05-03] MEDS ORDERED: PHENYLEPHRINE-NS 100 MCG/ML 10 ML SYRINGE ONE ×2 (08:16→09:20)
[2025-05-03] MEDS ORDERED: Ondansetron PF 4 MG/2 ML Vial ONE (08:29)
[2025-05-03] MEDS ORDERED: Ketorolac Tromethamine 30 MG (1 mL) VIAL ONE (08:34)
[2025-05-03] MEDS: glipiZIDE 10 MG TAB PO SCH (12:55)
[2025-05-03] MEDS: Insulin Glargine 30 UNITS/0.3 ML VIAL SC SCH (12:56)
[2025-05-03] MEDS: DULoxetine 30 MG CAP PO SCH (12:56)
[2025-05-03] MEDS: Lisinopril 2.5 MG TAB PO SCH (12:56)
[2025-05-03] MEDS: cefTRIAXone\\ROCEPHIN 1 GM in Sodium Chloride 0.9% 100 ML IVPB SCH (14:39)
[2025-05-04 05:05] LABS: #Basophils Less than 0.03 10x3/uL (0.0-0.2); #Eosinophils 0.07 10x3/uL (0.0-0.7); #Monocytes 0.62 10x3/uL (0.11-0.59); #Neutrophils 5.35 10x3/uL (1.40-6.50); %Basophils 0.1 % (0.0-1.0); %Eosinophils 0.9 % (0.0-10.0); %Lymphocytes 21.5 % (21.0-51.0); %Monocytes 7.9 % (0.0-10.0); %Neutrophils 68.4 % (42.0-75.0); Hematocrit 23.8 % (36.0-47.0); Hemoglobin 7.6 g/dL (12.0-16.0); Mean Corpuscular Hemoglobin 27.9 pg (27.0-31.0); Mean Corpuscular Volume 87.5 fL (78.0-98.0); Platelet Count 209 10x3/uL (130-400); Red Blood Cell (RBC) Count 2.72 mill/uL (4.20-5.40); White Blood Cell (WBC) Count 7.82 10x3/uL (4.8-10.8)
[2025-05-04 05:21] LABS: Anion Gap 11 mmol/L (10-20); BUN (Urea Nitrogen) 21 mg/dL (9.8-20.1); Calc. Creatinine Clearance 86 mL/min (70-130); Calcium 8.3 mg/dL (7.8-10.44); Carbon Dioxide 21 mmol/L (23-31); Chloride 106 mmol/L (98-107); Glucose 173 mg/dL (80-115); Potassium 4.6 mmol/L (3.5-5.1); Sodium 133 mmol/L (136-145)
[2025-05-04] MEDS ORDERED: Aspirin Chewable 81 MG TAB PO SCH (09:00)
[2025-05-04] MEDS: Aspirin Chewable 81 MG TAB PO SCH (09:44)
[2025-05-05 08:20] LABS: #Basophils Less than 0.03 10x3/uL (0.0-0.2); #Eosinophils 0.09 10x3/uL (0.0-0.7); #Monocytes 0.58 10x3/uL (0.11-0.59); #Neutrophils 6.04 10x3/uL (1.40-6.50); %Basophils 0.2 % (0.0-1.0); %Eosinophils 1.1 % (0.0-10.0); %Lymphocytes 19.3 % (21.0-51.0); %Monocytes 6.9 % (0.0-10.0); %Neutrophils 71.8 % (42.0-75.0); Hematocrit 24.4 % (36.0-47.0); Hemoglobin 7.4 g/dL (12.0-16.0); Mean Corpuscular Hemoglobin 26.9 pg (27.0-31.0); Mean Corpuscular Volume 88.7 fL (78.0-98.0); Platelet Count 209 10x3/uL (130-400); Red Blood Cell (RBC) Count 2.75 mill/uL (4.20-5.40); White Blood Cell (WBC) Count 8.41 10x3/uL (4.8-10.8)
[2025-05-05 08:42] LABS: Anion Gap 10 mmol/L (10-20); BUN (Urea Nitrogen) 13 mg/dL (9.8-20.1); Calc. Creatinine Clearance 103 mL/min (70-130); Calcium 8.9 mg/dL (7.8-10.44); Carbon Dioxide 25 mmol/L (23-31); Chloride 105 mmol/L (98-107); Glucose 130 mg/dL (80-115); Potassium 4.4 mmol/L (3.5-5.1); Sodium 136 mmol/L (136-145)
[2025-05-07] MEDS: Senokot S 8.6-50 MG TAB PO SCH (08:14)
[2025-05-07] MEDS: Bisacodyl 10 MG SUPP PR SCH (11:21)
[2025-05-07 12:51] LABS: ALT (SGPT) 11 U/L (Less than 34); AST (SGOT) 23 U/L (11-34); Albumin 2.8 g/dL (3.1-4.5); Alkaline Phosphatase 78 U/L (40-110); Anion Gap 14 mmol/L (10-20); BUN (Urea Nitrogen) 14 mg/dL (9.8-20.1); Bilirubin, Total 0.7 mg/dL (0.3-1.2); Calc. Creatinine Clearance 85 mL/min (70-130); Calcium 10.0 mg/dL (7.8-10.44); Carbon Dioxide 25 mmol/L (23-31); Chloride 99 mmol/L (98-107); Globulin 4.3 g/dL (2.4-3.5); Glucose 238 mg/dL (80-115); Potassium 4.6 mmol/L (3.5-5.1); Sodium 133 mmol/L (136-145)
[2025-05-07 20:47] VITALS: BP 125/77; TEMP 97.8
== END 2025-05-07 20:33 | DRG 481 ==
LOC: ERS 11:25 → SURG A 13:46
PROVIDERS: ADMIT Surgery Trauma Surgery; ATTEND Surgery Trauma Surgery
PROC: 3E03329 Introduction of Other Anti-infective into Peripheral Vein, Percutaneous Approach (ICD-10-PCS; 2025-05-02)
PROC: 0QS706Z Reposition Left Upper Femur with Intramedullary Internal Fixation Device, Open Approach (ICD-10-PCS; principal; 2025-05-03)
DX: S72.142A Displaced intertrochanteric fracture of left femur, initial encounter for closed fracture (principal); D62 Acute posthemorrhagic anemia; N39.0 Urinary tract infection, site not specified; I10 Essential (primary) hypertension; D64.9 Anemia, unspecified; E11.9 Type 2 diabetes mellitus without complications; Z98.890 Other specified postprocedural states; W19.XXXA Unspecified fall, initial encounter; E78.00 Pure hypercholesterolemia, unspecified; Z79.899 Other long term (current) drug therapy
CPT/HCPCS: 36415; 36416; 51701; 71045; 72170; 80048; 80053; 80306; 81001; 84484; 85025; 87086; 93005; 96365; 96367; 96375; C1713; G0390; J0696; J1308; J1815; J1885; J2270; J2405; J2704; J3010

== ENCOUNTER 2025-05-19 23:58 | Inpatient (IN) | payer OTHER ==
[2025-05-20 01:03] LABS: #Basophils 0.03 10x3/uL (0.0-0.2); #Eosinophils 0.20 10x3/uL (0.0-0.7); #Monocytes 2.20 10x3/uL (0.11-0.59); #Neutrophils 17.38 10x3/uL (1.40-6.50); %Basophils 0.1 % (0.0-1.0); %Eosinophils 0.9 % (0.0-10.0); %Lymphocytes 8.3 % (21.0-51.0); %Monocytes 9.8 % (0.0-10.0); %Neutrophils 77.6 % (42.0-75.0); Hematocrit 18.8 % (36.0-47.0); Hemoglobin 6.2 g/dL (12.0-16.0); Mean Corpuscular Hemoglobin 27.1 pg (27.0-31.0); Mean Corpuscular Volume 82.1 fL (78.0-98.0); Platelet Count 302 10x3/uL (130-400); Red Blood Cell (RBC) Count 2.29 mill/uL (4.20-5.40); White Blood Cell (WBC) Count 22.42 10x3/uL (4.8-10.8)
[2025-05-20] MEDS ORDERED: Pantoprazole 40 MG VIAL ONE (01:13)
[2025-05-20 01:41] LABS: ALT (SGPT) 12 U/L (Less than 34); AST (SGOT) 18 U/L (11-34); Albumin 1.8 g/dL (3.1-4.5); Alkaline Phosphatase 128 U/L (40-110); Anion Gap 13 mmol/L (10-20); BUN (Urea Nitrogen) 56 mg/dL (9.8-20.1); Bilirubin, Total 0.4 mg/dL (0.3-1.2); Calc. Creatinine Clearance 0 mL/min (70-130); Calcium 8.5 mg/dL (7.8-10.44); Carbon Dioxide 19 mmol/L (23-31); Chloride 99 mmol/L (98-107); Globulin 4.6 g/dL (2.4-3.5); Glucose 230 mg/dL (80-115); Potassium 5.1 mmol/L (3.5-5.1); Sodium 126 mmol/L (136-145)
[2025-05-20] MEDS ORDERED: Ondansetron PF 4 MG/2 ML Vial IVP PRN (03:43)
[2025-05-20] MEDS ORDERED: HYDROcodone/Acetaminophen 5/325 mg Tablet PO PRN (04:28)
[2025-05-20] MEDS ORDERED: Glucagon 1 MG/ML KIT IM PRN (04:28)
[2025-05-20] MEDS ORDERED: Dextrose 50% Abboject 50 ML SYRINGE SLOW IVP PRN (04:28)
[2025-05-20 05:37] LABS: Iron 59 ug/dL (50-170); Iron Binding Capacity, Total 190 mcg/dL (265-497)
[2025-05-20 05:52] VITALS: BMI 26.7
[2025-05-20 06:58] LABS: CAUTI Indications for Culture Fever or rigors; Glucose, Urine (Dipstick) 70 mg/dL (Negative); Leukocyte 500 Leu/uL (Negative); Protein, Urine (Dipstick) 10 mg/dL (Neg-Trace); Specific Gravity, Urine 1.008 (1.002-1.036); WBC/HPF Greater than 50 HPF (0-3)
[2025-05-20 07:14] LABS: Bacteria/HPF 1+ HPF (None Seen)
[2025-05-20 07:15] LABS: Urine Culture Reflex Yes Yes
[2025-05-20] MEDS: cefTRIAXone\\ROCEPHIN 2 GM in Sodium Chloride 0.9% 100 ML IVPB SCH (09:23)
[2025-05-20 11:02] LABS: Hematocrit 22.5 % (36.0-47.0); Hemoglobin 7.4 g/dL (12.0-16.0)
[2025-05-20 11:19] LABS: Anion Gap 12 mmol/L (10-20); BUN (Urea Nitrogen) 53 mg/dL (9.8-20.1); Calc. Creatinine Clearance 15 mL/min (70-130); Calcium 8.3 mg/dL (7.8-10.44); Carbon Dioxide 18 mmol/L (23-31); Chloride 104 mmol/L (98-107); Glucose 282 mg/dL (80-115); Potassium 4.5 mmol/L (3.5-5.1); Sodium 129 mmol/L (136-145)
[2025-05-20] MEDS: Albumin 25% 25 GM (100 mL) BOT IVPB SCH (13:50)
[2025-05-20] MEDS: Acetaminophen 325 MG TAB PO SCH (13:50)
[2025-05-20] MEDS: Acetaminophen 325 MG TAB PO PRN (17:40)
[2025-05-20 20:53] LABS: Anion Gap 17 mmol/L (10-20); BUN (Urea Nitrogen) 44 mg/dL (9.8-20.1); Calc. Creatinine Clearance 18 mL/min (70-130); Calcium 8.8 mg/dL (7.8-10.44); Carbon Dioxide 16 mmol/L (23-31); Chloride 105 mmol/L (98-107); Glucose 267 mg/dL (80-115); Potassium 4.1 mmol/L (3.5-5.1); Sodium 134 mmol/L (136-145)
[2025-05-20 20:55] LABS: Iron 43 ug/dL (50-170); Iron Binding Capacity, Total 159 mcg/dL (265-497)
[2025-05-20] MEDS: Pantoprazole 40 MG DR.TAB PO SCH (21:21)
[2025-05-20] MEDS: Senokot S 8.6-50 MG TAB PO SCH (23:35)
[2025-05-20] MEDS: Bisacodyl 10 MG SUPP PR SCH (23:35)
[2025-05-21 00:40] LABS: Anion Gap 12 mmol/L (10-20); BUN (Urea Nitrogen) 48 mg/dL (9.8-20.1); Calc. Creatinine Clearance 21 mL/min (70-130); Calcium 8.8 mg/dL (7.8-10.44); Carbon Dioxide 21 mmol/L (23-31); Chloride 106 mmol/L (98-107); Glucose 180 mg/dL (80-115); Potassium 4.4 mmol/L (3.5-5.1); Sodium 135 mmol/L (136-145)
[2025-05-21 04:03] LABS: #Basophils 0.04 10x3/uL (0.0-0.2); #Eosinophils 0.19 10x3/uL (0.0-0.7); #Monocytes 1.51 10x3/uL (0.11-0.59); #Neutrophils 10.57 10x3/uL (1.40-6.50); %Basophils 0.3 % (0.0-1.0); %Eosinophils 1.3 % (0.0-10.0); %Lymphocytes 12.1 % (21.0-51.0); %Monocytes 10.5 % (0.0-10.0); %Neutrophils 73.7 % (42.0-75.0); Hematocrit 21.7 % (36.0-47.0); Hemoglobin 7.2 g/dL (12.0-16.0); Mean Corpuscular Hemoglobin 27.0 pg (27.0-31.0); Mean Corpuscular Volume 81.3 fL (78.0-98.0); Platelet Count 309 10x3/uL (130-400); Red Blood Cell (RBC) Count 2.67 mill/uL (4.20-5.40); White Blood Cell (WBC) Count 14.35 10x3/uL (4.8-10.8)
[2025-05-21 04:14] LABS: Albumin 2.7 g/dL (3.1-4.5); Anion Gap 16 mmol/L (10-20); BUN (Urea Nitrogen) 41 mg/dL (9.8-20.1); BUN/Creatinine Ratio 17.83; Calc. Creatinine Clearance 29 mL/min (70-130); Calcium 8.9 mg/dL (7.8-10.44); Carbon Dioxide 23 mmol/L (23-31); Chloride 109 mmol/L (98-107); Glucose 183 mg/dL (80-115); Potassium 3.8 mmol/L (3.5-5.1); Sodium 144 mmol/L (136-145)
[2025-05-21] MEDS: Albumin 25% 25 GM (100 mL) BOT IVPB SCH (13:43)
[2025-05-21] MEDS: Insulin Glargine 30 UNITS/0.3 ML VIAL SC SCH (13:43)
[2025-05-21] MEDS: EPOETIN ALFA-EPBX (ESRD) 10,000 UNITS/ML VIAL SC SCH (15:13)
[2025-05-21] MEDS: Ferrous Sulfate 325 MG TAB PO SCH (17:17)
[2025-05-21 17:23] LABS: Hematocrit 21.5 % (36.0-47.0); Hemoglobin 7.0 g/dL (12.0-16.0); Platelet Count 286 10x3/uL (130-400)
[2025-05-22 04:27] LABS: #Basophils Less than 0.03 10x3/uL (0.0-0.2); #Eosinophils 0.10 10x3/uL (0.0-0.7); #Monocytes 1.10 10x3/uL (0.11-0.59); #Neutrophils 7.43 10x3/uL (1.40-6.50); %Basophils 0.2 % (0.0-1.0); %Eosinophils 0.9 % (0.0-10.0); %Lymphocytes 22.3 % (21.0-51.0); %Monocytes 9.6 % (0.0-10.0); %Neutrophils 65.2 % (42.0-75.0); Hematocrit 20.1 % (36.0-47.0); Hemoglobin 6.7 g/dL (12.0-16.0); Mean Corpuscular Hemoglobin 27.2 pg (27.0-31.0); Mean Corpuscular Volume 81.7 fL (78.0-98.0); Platelet Count 306 10x3/uL (130-400); Red Blood Cell (RBC) Count 2.46 mill/uL (4.20-5.40); White Blood Cell (WBC) Count 11.41 10x3/uL (4.8-10.8)
[2025-05-22 04:58] LABS: Anion Gap 9 mmol/L (10-20); BUN (Urea Nitrogen) 12 mg/dL (9.8-20.1); Calc. Creatinine Clearance 106 mL/min (70-130); Calcium 8.7 mg/dL (7.8-10.44); Carbon Dioxide 31 mmol/L (23-31); Chloride 107 mmol/L (98-107); Glucose 151 mg/dL (80-115); Magnesium 1.6 mg/dL (1.6-2.6); Potassium 3.0 mmol/L (3.5-5.1); Sodium 144 mmol/L (136-145)
[2025-05-22] MEDS: Magnesium Sulfate In Water 4 GM in Premix 1 BAG IVPB SCH ×2 (06:51→08:50)
[2025-05-22] MEDS: Insulin Glargine 30 UNITS/0.3 ML VIAL SC SCH (08:48)
[2025-05-22] MEDS: Sodium Ferric Gluconate 250 MG in Sodium Chloride 0.9% 250 ML 250 ML IVPB SCH (11:26)
[2025-05-23 04:05] LABS: #Basophils 0.06 10x3/uL (0.0-0.2); #Eosinophils 0.15 10x3/uL (0.0-0.7); #Monocytes 1.17 10x3/uL (0.11-0.59); #Neutrophils 8.96 10x3/uL (1.40-6.50); %Basophils 0.4 % (0.0-1.0); %Eosinophils 1.1 % (0.0-10.0); %Lymphocytes 20.8 % (21.0-51.0); %Monocytes 8.6 % (0.0-10.0); %Neutrophils 66.0 % (42.0-75.0); Hematocrit 26.5 % (36.0-47.0); Hemoglobin 8.8 g/dL (12.0-16.0); Mean Corpuscular Hemoglobin 27.4 pg (27.0-31.0); Mean Corpuscular Volume 82.6 fL (78.0-98.0); Platelet Count 337 10x3/uL (130-400); Red Blood Cell (RBC) Count 3.21 mill/uL (4.20-5.40); White Blood Cell (WBC) Count 13.59 10x3/uL (4.8-10.8)
[2025-05-23 04:21] LABS: Anion Gap 10 mmol/L (10-20); BUN (Urea Nitrogen) 6 mg/dL (9.8-20.1); Calc. Creatinine Clearance 109 mL/min (70-130); Calcium 8.8 mg/dL (7.8-10.44); Carbon Dioxide 23 mmol/L (23-31); Chloride 110 mmol/L (98-107); Glucose 208 mg/dL (80-115); Magnesium 1.9 mg/dL (1.6-2.6); Potassium 4.2 mmol/L (3.5-5.1); Sodium 139 mmol/L (136-145)
[2025-05-23] MEDS: Electrolyte Replacement Protocol 1 EACH FS ONE (09:42)
[2025-05-23] MEDS: PHOS-NAK 1 PKT PACK PO SCH (09:42)
[2025-05-23 15:43] VITALS: BP 126/76; TEMP 97.8
== END 2025-05-23 16:00 | DRG 871 ==
LOC: ERS 23:58 → 2SE 05-20 03:43 → UNDOADMIN 05-20 03:43
PROVIDERS: ADMIT Internal Medicine; ATTEND Family Medicine
PROC: 30233N1 Transfusion of Nonautologous Red Blood Cells into Peripheral Vein, Percutaneous Approach (ICD-10-PCS; principal; 2025-05-20)
PROC: 3E03329 Introduction of Other Anti-infective into Peripheral Vein, Percutaneous Approach (ICD-10-PCS; 2025-05-20)
PROC: 0T9B70Z Drainage of Bladder with Drainage Device, Via Natural or Artificial Opening (ICD-10-PCS; 2025-05-20)
PROC: 30233J1 Transfusion of Nonautologous Serum Albumin into Peripheral Vein, Percutaneous Approach (ICD-10-PCS; 2025-05-21)
DX: A41.50 Gram-negative sepsis, unspecified (principal); G93.41 Metabolic encephalopathy; J15.69 Pneumonia due to other Gram-negative bacteria; N17.9 Acute kidney failure, unspecified; E87.1 Hypo-osmolality and hyponatremia; E87.21 Acute metabolic acidosis; D62 Acute posthemorrhagic anemia; N13.6 Pyonephrosis; E46 Unspecified protein-calorie malnutrition; E87.5 Hyperkalemia; E78.00 Pure hypercholesterolemia, unspecified; E88.09 Other disorders of plasma-protein metabolism, not elsewhere classified; I10 Essential (primary) hypertension; E11.65 Type 2 diabetes mellitus with hyperglycemia; R19.7 Diarrhea, unspecified; Z98.890 Other specified postprocedural states; Z79.899 Other long term (current) drug therapy; Z79.84 Long term (current) use of oral hypoglycemic drugs; Z79.2 Long term (current) use of antibiotics; Z79.891 Long term (current) use of opiate analgesic; Z87.81 Personal history of (healed) traumatic fracture; Z98.891 History of uterine scar from previous surgery; Z79.82 Long term (current) use of aspirin; N32.0 Bladder-neck obstruction; D50.9 Iron deficiency anemia, unspecified; E86.9 Volume depletion, unspecified; E83.42 Hypomagnesemia; E83.39 Other disorders of phosphorus metabolism; Z68.26 Body mass index [BMI] 26.0-26.9, adult
CPT/HCPCS: 36415; 36416; 36430; 71045; 72192; 76770; 80048; 80053; 81001; 82043; 82274; 82550; 82728; 83010; 83540; 83550; 83615; 83690; 83735; 84100; 84145; 84300; 85025; 85046; 86850; 86900; 86901; 87086; 93970; 96361; 96374; A4217; J0696; J1815; J2470; J2916; J3475; J7030; J7050; P9016; P9047; Q5105